=== PATIENT | male | born 1955 | race Caucasian/White ===

== ENCOUNTER 2018-11-22 18:35 | Inpatient (IN) | payer MEDICAID ==
--- NOTE | 2018-11-22 19:15 | ED Physician Chart ---
ED Chief Complaint/HPI - Patient Information Date Seen:: 11/22/18 Time Seen:: 19:00 Chief Complaint:: chest pain and abdominal pain History of Present Illness:: Patient complaint of chest pain abdominal pain today. He vomited twice. He states he has not eaten anything all day today. Allergies:: Allergies Allergy/AdvReac Type Severity Reaction Status Date / Time No Known Allergies Allergy Verified 11/22/18 18:55 Vitals:: Vital Signs - 8 hr 11/22/18 19:00 Temp 98.2 F HR 85 RR 16 BP 127/80 O2 Sat % 97 Historian:: EMS Review:: Transfer documents Reviewed ED Review of Systems - Review of Systems General/Constitutional: No fever Skin: No skin lesions Head: No headache Eyes: No loss of vision ENT: No earache Neck: No neck pain Cardio Vascular: Chest pain GI: Nausea, Vomiting, Pain G/U: No dysuria Musculoskeletal: No bone or joint pain Endocrine: No polyuria Hematopoietic: No bruising Allergic/Immuno: No urticaria ED Past Medical History - Past Medical History Past Medical History: HTN, Asthma/COPD, Arthritis Family History: Other (not available) Social History: Care Facility Surgical History: other (colostomy) Psychiatricy History: Other (anxiety) Medication: Reviewed Family Medical History - Family Member Father History Unknown: Yes ED Physical Exam - Physical Examination General/Constitutional: Awake, Well-developed, well-nourished, Alert, No distress Other Gen/Cons comments:: Patient is confused; does not know the year Head: Atraumatic Eyes: Lids, conjuctiva normal, PERRL Skin: Nl inspection, No rash, No skin lesions, No ecchymosis, Well hydrated ENMT: External ears, nose nl Other ENMT comments:: edentulous Neck: No nuchal rigidity Respiratory: Nl effort/Exclusion Other Respiratory comments:: 1.5 out of 4 diffuse wheezing Cardio Vascular: RRR, No murmur, gallop, rubs, NL S1 S2 GI: No organomegaly, Nondistended, No mass/bruits Other GI comments:: Diffuse tenderness without guarding Extremities: No edema Neuro/Psych: No focal deficits ED Labs/Radiology/EKG Results - Lab Results Results: Abnormal Lab Results 11/22/18 11/22/18 11/22/18 19:18 19:18 19:18 WBC 6.1 RBC 4.73 Hgb 13.7 Hct 41.2 MCV 87.0 MCH 28.9 MCHC Differential 33.2 RDW 13.4 Plt Count 259 MPV 8.6 Neutrophils % 54.1 Lymphocytes % 34.5 Monocytes % 9.4 Eosinophils % 1.5 Basophils % 0.5 Sodium 142 Potassium 4.1 Chloride 101 Carbon Dioxide 34.2 H Anion Gap 10.9 BUN 9 Creatinine 0.7 Est GFR ( Amer) > 60.0 Est GFR (Non-Af Amer) > 60.0 BUN/Creatinine Ratio 12.9 Glucose 107 H Calcium 9.9 Magnesium 2.1 Troponin I < 0.01 L Lipase 24 - Radiology Results Results: Chest x-ray showed calcification of aortic arch; otherwise normal - EKG Interpretations Rate & Rhythm: EKG showed a normal sinus rhythm with a rate of 83 [place]: normal ED Assessment - Assessment General Assessment: Patient complained of chest pain and abdominal pain and appears to have dementia so is a poor historian. I spoke to Dr. Finley and patient be admitted. The workup was negative on the patient. ED Septic Shock - . Is Septic Shock (SBP<90, OR Lactate>4 mmol\L) present?: No - <6hrs of presentation: Vital Signs: Vital Signs - 8 hr 11/22/18 19:00 Temp 98.2 F HR 85 RR 16 BP 127/80 O2 Sat % 97 ED Reassessment (Disposition) - Reassessment Reassessment Condition:: Unchanged - Diagnosis Diagnosis:: Chest pain; abdominal pain; vomiting; status post colostomy - Patient Disposition Admitted to:: Telemetry Spoke to:: Estuardo Finley Admitting Medical Physician:: Estuardo Finley Condition at Disposition:: Stable, Unchanged
[2018-11-22 19:23] LABS: % BASOPHILS 0.5 % (0.0-2.0); % EOSINOPHILS 1.5 % (0.0-5.0); % LYMPHOCYTES 34.5 % (20.0-50.0); % MONOCYTES 9.4 % (2.0-10.0); % NEUTROPHILS 54.1 % (40.0-80.0); EOSINOPHILE ABSOLUTE 0.1 Th/cmm (0.1-0.4); HEMATOCRIT 41.2 % (41.0-60); HEMOGLOBIN 13.7 gm/dL (12-16); LYMPHOCYTE ABSOLUTE 2.1 Th/cmm (1.5-3.0); MEAN CORPUSCULAR HEMOGLOBIN 28.9 pg (26.0-30.0); MEAN CORPUSCULAR HGB CONC 33.2 pg (28.0-36.0); MEAN PLATELET VOLUME 8.6 fl; MONOCYTE ABSOLUTE 0.6 Th/cmm (0.3-1.0); NEUTROPHILE ABSOLUTE 3.3 Th/cmm (1.8-8.0); PLATELET COUNT 259 Th/cmm (150-400); RED BLOOD COUNT 4.73 Mil/cmm (4.30-5.70); RED CELL DISTRIBUTION WIDTH 13.4 % (11.5-20.0); WHITE BLOOD COUNT 6.1 Th/cmm (4.8-10.8)
[2018-11-22 19:38] LABS: ANION GAP 10.9 (7.0-16.0); BUN - UREA NITROGEN 9 mg/dL (7-25); CALCIUM SERUM 9.9 mg/dL (8.6-10.3); CARBON DIOXIDE 34.2 mEq/L (21.0-31.0); CHLORIDE 101 mEq/L (98-107); CREATININE - SERUM 0.7 mg/dL (0.7-1.3); GFR AFRICAN-AMERICAN > 60.0 ml/min (>90); GFR NON AFRICAN-AMERICAN > 60.0 ml/min; GLUCOSE 107 mg/dL (70-105); LIPASE 24 U/L (11-82); MAGNESIUM 2.1 mg/dL (1.9-2.7); POTASSIUM SERUM 4.1 mEq/L (3.5-5.1); SODIUM SERUM 142 mEq/L (136-145)
[2018-11-22] MEDS ORDERED: Non-Formulary Item 1 EA (Acetaminophen [Pain Reliever] 650 MG) PO PRN (20:42)
[2018-11-22] MEDS ORDERED: Maalox 30 mL Cup PO PRN (20:43)
[2018-11-22] MEDS ORDERED: Morphine Sulfate 2 mg/mL 1mL Syr IVP PRN (20:43)
[2018-11-22] MEDS ORDERED: Hydrocodone/APAP 5mg/325mg Tab PO PRN (20:43)
--- NOTE | 2018-11-22 21:22 | History & Physical ---
ADMIT DATE: 11/22/2018 CHIEF COMPLAINT: Chest pain, abdominal pain, and vomiting. HISTORY OF PRESENT ILLNESS: This is a 63-year-old male with history of hypertension, asthma, COPD, arthritis, dementia, status post colostomy for unclear reasons. The patient is not a best historian. The patient stated that he has been having chest pain, abdominal pain all day long. The patient has been evaluated in the ER and admitted for further management. PAST MEDICAL HISTORY: As mentioned in history of present illness. PAST SURGICAL HISTORY: Status post colostomy. ALLERGIES: No known drug allergies. MEDICATIONS: The patient is on multivitamin, Dulcolax, albuterol and Tylenol. FAMILY HISTORY: Noncontributory. SOCIAL HISTORY: The patient is a prison patient, requiring 24-hour total care. REVIEW OF SYSTEMS: This is limited secondary to the patient's current mental state. We will try to obtain more detailed review of system at a later date done by members. There is no known listed on sheet besides the patient. We will try to get more information from nursing staff at the facility at [facility] on [phone] as well as from Dr. Sabillon who normally follows the patient in the facility. PHYSICAL EXAMINATION: VITAL SIGNS: Blood pressure 124/83, respirations 18, pulse 70, and temperature 98.1. GENERAL: Elderly male, appears stated age, thin built. NECK: Supple. LUNGS: Equal breath sounds, few rhonchi. HEART: Regular rate and rhythm without appreciable murmurs. ABDOMEN: Soft, globular. Positive colostomy. EXTREMITIES: Positive excoriation. NEUROLOGIC: Limited. LABORATORY DATA: WBC 6, hemoglobin 13, platelets 229. Sodium 140, potassium 4.1, bicarbonate 34, BUN 29, creatinine 0.7, blood sugar 107. Troponin negative x 1. CTA of the abdomen and pelvis was done, but the results pending plus chest x-ray. ASSESSMENT AND PLAN: Chest pain, atypical abdominal pain, episode of vomiting, hypertension, asthma/chronic obstructive pulmonary disease, osteoarthritis, dementia. We will rule the patient out for myocardial infarction. We will refer the patient to Cardiology. We will review the patient's CT abdomen and pelvis. We will place the patient on nitroglycerin as well as aspirin. Continue on IV hydration. We will perform 2D echo. Continue with current care, followup consult and recommendations. We will decide on a GI workup as we continue following on the patient. JOB# [id number]
[2018-11-22] MEDS: D5-0.45NS 1,000 ML IV SCH (22:26)
[2018-11-22] MEDS: Albuterol Nebulizer 2.5mg/3mL HHN PRN (22:35)
[2018-11-23] MEDS: Albuterol Nebulizer 2.5mg/3mL HHN PRN ×2 (03:28→21:04)
[2018-11-23 06:21] LABS: % BASOPHILS 0.9 % (0.0-2.0); % LYMPHOCYTES 32.4 % (20.0-50.0); % MONOCYTES 11.2 % (2.0-10.0); % NEUTROPHILS 52.5 % (40.0-80.0); EOSINOPHILE ABSOLUTE 0.1 Th/cmm (0.1-0.4); HEMATOCRIT 39.3 % (41.0-60); HEMOGLOBIN 12.7 gm/dL (12-16); LYMPHOCYTE ABSOLUTE 1.6 Th/cmm (1.5-3.0); MEAN CELL VOLUME 88.2 fl (80-99); MEAN CORPUSCULAR HEMOGLOBIN 28.6 pg (26.0-30.0); MEAN CORPUSCULAR HGB CONC 32.4 pg (28.0-36.0); MEAN PLATELET VOLUME 8.6 fl; MONOCYTE ABSOLUTE 0.5 Th/cmm (0.3-1.0); NEUTROPHILE ABSOLUTE 2.7 Th/cmm (1.8-8.0); PLATELET COUNT 219 Th/cmm (150-400); RED BLOOD COUNT 4.45 Mil/cmm (4.30-5.70); RED CELL DISTRIBUTION WIDTH 13.1 % (11.5-20.0); WHITE BLOOD COUNT 4.9 Th/cmm (4.8-10.8)
[2018-11-23 06:39] LABS: ALB/GLOB RATIO 1.3 (1.0-1.8); ALBUMIN 3.4 gm/dL (4.2-5.5); ALKALINE PHOSPHATASE 68 U/L (34-104); ANION GAP 8.7 (7.0-16.0); BILIRUBIN,TOTAL 0.8 mg/dL (0.3-1.0); BUN - UREA NITROGEN 9 mg/dL (7-25); CALCIUM SERUM 9.2 mg/dL (8.6-10.3); CHLORIDE 102 mEq/L (98-107); CREATININE - SERUM 0.8 mg/dL (0.7-1.3); GFR AFRICAN-AMERICAN > 60.0 ml/min (>90); GFR NON AFRICAN-AMERICAN > 60.0 ml/min; GLUCOSE 117 mg/dL (70-105); POTASSIUM SERUM 3.7 mEq/L (3.5-5.1); SGOT 19 U/L (13-39); SGPT/ALT 13 U/L (7-52); SODIUM SERUM 141 mEq/L (136-145)
[2018-11-23] MEDS: Albuterol Nebulizer 2.5mg/3mL HHN SCH ×4 (06:51→19:25)
[2018-11-23] MEDS: Ipratropium Neb 0.5 mg/2.5 mL UD HHN SCH ×4 (06:51→19:25)
--- NOTE | 2018-11-23 08:26 | Diagnostic Imaging Report ---
CT abdomen and pelvis without intravenous contrast Indication: Abdominal pain Comparison: None, Technique: Axial images were obtained from the lung bases to the bilateral proximal femurs without IV contrast. Coronal reconstructions were made. total DLP: 338, CTDI7.8 FINDINGS: Hypoventilatory atelectatic changes of the lung bases are noted. Assessment of the solid organs is limited due to lack of IV contrast. No evidence of focal hepatic or splenic lesions. Exam is also limited due to motion. No focal pancreatic or adrenal lesions. No evidence of hydronephrosis or nephrolithiasis. A left lower quadrant loop ostomy is noted. No evidence of bowel obstruction. Moderate stool is noted. There is minimal bowel wall thickening of the sigmoid colon proximal to the ostomy. No free air or free fluid. Mildly prominent prostate gland is noted. Bilateral fat-containing inguinal hernias are noted with additional focal herniation lateral to the fat-containing left inguinal partially containing a loop of the sigmoid colon distal to the ostomy. The osseous structures demonstrate no acute abnormalities. IMPRESSION: Left lower quadrant loop ostomy noted. There is mild bowel wall thickening proximal to the loop ostomy in the region of the proximal sigmoid colon. Inflammatory process cannot be excluded. Small bilateral fat-containing inguinal hernias are noted. There is also herniation of fat and partial herniation of the sigmoid colon just superior and lateral to the fat-containing left inguinal hernia. This is located inferior and separate from the loops ostomy site. This is also medial and appears separate from the left femoral vessels. Please correlate clinically. Mildly prominent prostate gland correlate clinically.
--- NOTE | 2018-11-23 08:43 | Diagnostic Imaging Report ---
Portable chest x-ray History: Pain Allowing for portable technique the heart size is normal. No focal pulmonary parenchymal processes. No hilar or mediastinal abnormalities. Impression: No acute abnormalities.
[2018-11-23] MEDS: Multivitamin w/ Minerals Tab PO SCH (09:58)
[2018-11-23] MEDS: D5-0.45NS 1,000 ML IV SCH ×2 (09:58→23:00)
[2018-11-23] MEDS: Pantoprazole 40 mg EC Tab PO SCH ×2 (09:58→17:06)
--- NOTE | 2018-11-23 13:18 | Internal Medicine Prog Note ---
Internal Medicine Subjective - Subjective Patient seen and examined:: with staff, chart reviewed Patient is:: awake, verbal, interactive, in bed Patient Complaints of:: vomitting Per staff patient has:: no adverse event, no episodes of fall, poor appetite, tolerating meds Internal Medicine Objective - Results Result Diagrams: 11/23/18 06:00 11/23/18 06:00 Recent Labs: Laboratory Last Values WBC 4.9 Th/cmm (4.8-10.8) 11/23/18 06:00 RBC 4.45 Mil/cmm (4.30-5.70) 11/23/18 06:00 Hgb 12.7 gm/dL (12-16) 11/23/18 06:00 Hct 39.3 % (41.0-60) L 11/23/18 06:00 MCV 88.2 fl (80-99) 11/23/18 06:00 MCH 28.6 pg (26.0-30.0) 11/23/18 06:00 MCHC Differential 32.4 pg (28.0-36.0) 11/23/18 06:00 RDW 13.1 % (11.5-20.0) 11/23/18 06:00 Plt Count 219 Th/cmm (150-400) 11/23/18 06:00 MPV 8.6 fl 11/23/18 06:00 Neutrophils % 52.5 % (40.0-80.0) 11/23/18 06:00 Lymphocytes % 32.4 % (20.0-50.0) 11/23/18 06:00 Monocytes % 11.2 % (2.0-10.0) H 11/23/18 06:00 Eosinophils % 3.0 % (0.0-5.0) 11/23/18 06:00 Basophils % 0.9 % (0.0-2.0) 11/23/18 06:00 Sodium 141 mEq/L (136-145) 11/23/18 06:00 Potassium 3.7 mEq/L (3.5-5.1) 11/23/18 06:00 Chloride 102 mEq/L (98-107) 11/23/18 06:00 Carbon Dioxide 34.0 mEq/L (21.0-31.0) H 11/23/18 06:00 Anion Gap 8.7 (7.0-16.0) 11/23/18 06:00 BUN 9 mg/dL (7-25) 11/23/18 06:00 Creatinine 0.8 mg/dL (0.7-1.3) 11/23/18 06:00 Est GFR ( Amer) > 60.0 ml/min (>90) 11/23/18 06:00 Est GFR (Non-Af Amer) > 60.0 ml/min 11/23/18 06:00 BUN/Creatinine Ratio 11.3 11/23/18 06:00 Glucose 117 mg/dL (70-105) H 11/23/18 06:00 Calcium 9.2 mg/dL (8.6-10.3) 11/23/18 06:00 Magnesium 2.1 mg/dL (1.9-2.7) 11/22/18 19:18 Total Bilirubin 0.8 mg/dL (0.3-1.0) 11/23/18 06:00 AST 19 U/L (13-39) 11/23/18 06:00 ALT 13 U/L (7-52) 11/23/18 06:00 Alkaline Phosphatase 68 U/L (34-104) 11/23/18 06:00 Ammonia 60 umol/L (16-53) H 11/23/18 06:00 Troponin I < 0.01 ng/mL (0.01-0.05) L 11/23/18 06:00 B-Natriuretic Peptide < 5.0 pg/mL (5.0-100.0) L 11/23/18 06:00 Total Protein 6.0 gm/dL (6.0-8.3) 11/23/18 06:00 Albumin 3.4 gm/dL (4.2-5.5) L 11/23/18 06:00 Globulin 2.6 gm/dL 11/23/18 06:00 Albumin/Globulin Ratio 1.3 (1.0-1.8) 11/23/18 06:00 Lipase 24 U/L (11-82) 11/22/18 19:18 TSH 1.04 uIU/ml (0.34-5.60) 11/23/18 06:00 - Physical Exam Vitals and I&O: Vital Signs Temp 97.1 F 11/23/18 12:14 Pulse 70 11/23/18 12:14 Resp 17 11/23/18 12:14 BP 130/71 11/23/18 12:14 Pulse Ox 98 11/23/18 12:14 Intake & Output 11/22/18 11/23/18 11/23/18 18:59 06:59 18:59 Intake Total 100 922.667 Balance 100 922.667 Weight (lbs) 51.891 kg Intake: Intake, IV Amount 922.667 D5-0.45NS 1,000 ml @ 80 922.667 mls/hr IV .[id number] [facility] Rx #:[id number] Oral 100 Other: # Voids 2 # Bowel Movements 0 Weight Source Bedscale Active Medications: Current Medications Acetaminophen (Tylenol) 650 mg PO Q4H PRN PRN Reason: Pain Or Fever above 101 Stop: 01/21/19 20:42 Acetaminophen/Hydrocodone Bitart ([place] 5mg/325mg) 1 tab PO Q4H PRN PRN Reason: Pain (Severe) Stop: 01/21/19 20:42 Al Hydrox/Mg Hydrox/Simethicone (Maalox) 30 ml PO Q6H PRN PRN Reason: Dyspepsia Stop: 01/21/19 20:42 Albuterol Sulfate (Albuterol 2.5mg/3ml Neb Ud) 2.5 mg HHN Q4HRT PRN PRN Reason: shortness Stop: 01/21/19 20:41 Last Admin: 11/23/18 03:28 Dose: 2.5 mg Albuterol Sulfate (Albuterol 2.5mg/3ml Neb Ud) 2.5 mg HHN QIDRT [facility] Stop: 01/22/19 06:59 Last Admin: 11/23/18 10:36 Dose: 2.5 mg Aspirin (Ecotrin) 81 mg PO DAILY [facility] Stop: 01/22/19 08:59 Last Admin: 11/23/18 09:58 Dose: 81 mg Bisacodyl (Dulcolax 5 Mg Ec Tab) 5 mg PO DAILY PRN PRN Reason: Constipation Stop: 01/21/19 20:41 Heparin Sodium (Porcine) (Heparin) 5,000 units SUBQ Q12HR [facility] Stop: 01/21/19 20:59 Last Admin: 11/23/18 09:57 Dose: 5,000 units Dextrose/Sodium Chloride (D5-0.45ns) 1,000 mls @ 80 mls/hr IV .[id number] [facility] Stop: 01/21/19 20:44 Last Admin: 11/23/18 09:58 Dose: 80 mls/hr Ipratropium [place] (Atrovent Neb 0.5mg/2.5ml) 0.5 mg HHN QIDRT [facility] Stop: 01/22/19 06:59 Last Admin: 11/23/18 10:36 Dose: 0.5 mg Lactulose (Cephulac) 30 gm PO DAILY [facility] Stop: 01/22/19 13:14 Morphine Sulfate (Morphine) 2 mg IVP Q4H PRN PRN Reason: Chest Pain Stop: 01/21/19 20:42 Nitroglycerin (Nitrostat) 0.4 mg SL Q5MIN PRN PRN Reason: Chest Pain Stop: 01/21/19 20:42 Ondansetron HCl (Zofran) 4 mg IV Q8H PRN PRN Reason: Nausea / Vomiting Stop: 01/21/19 20:42 Last Admin: 11/23/18 09:57 Dose: 4 mg Pantoprazole Sodium (Protonix) 40 mg PO BID [facility] Stop: 01/22/19 08:59 Last Admin: 11/23/18 09:58 Dose: 40 mg Zolpidem Tartrate (Ambien) 10 mg PO HS PRN PRN Reason: Insomnia Stop: 01/21/19 20:42 General: alert, thin HEENT: NC/AT, PERRLA Neck: Supple, No JVD Lungs: CTAB Cardiovascular: RRR, Normal S1, Normal S2, without murmur Abdomen: soft, globular, positive bowel sound, other (ostomy) Extremities: excoriation Neurological: no change, disorganized Internal Medicine Assmt/Plan - Assessment Assessment: ASSESSMENT AND PLAN: Chest pain, atypical abdominal pain, episode of vomiting, hypertension, asthma/chronic obstructive pulmonary disease, osteoarthritis, dementia. - Plan Plan: We will rule the patient out for myocardial infarction. We will refer the patient to Cardiology. We will review the patient's CT abdomen and pelvis. We will place the patient on nitroglycerin as well as aspirin. Continue on IV hydration. We will perform 2D echo. Continue with current care, followup consult and recommendations. We will decide on a GI workup as we continue following on the patient. add lactulose
[2018-11-23] MEDS ORDERED: VTE Chemical Prophylaxis Screen/Admission MC PRN (14:29)
[2018-11-23] MEDS: Lactulose 10 Gm/15 mL 30mL UDC PO SCH (15:07)
--- NOTE | 2018-11-23 15:30 | Cardiology ---
11/23/[address] Finley. PROCEDURE: Echocardiogram. M-MODE ECHOCARDIOGRAM: Mitral valve, anterior leaflet of mitral valve shows normal excursion, EF velocity. Posterior leaflet of the mitral valve shows normal excursion. Left ventricular posterior wall showed normal thickness, excursion. Interventricular septum showed normal thickness, excursion. Ejection fraction 72%. Left atrium normal. Aortic root shows normal dimension, normal excursion of aortic leaflets. CONCLUSION: Hypertrophy of the left ventricle, ejection fraction 72%. 2D ECHO: Long axis view showed normal sized left ventricle with hypertrophy of the left ventricle. Left atrium normal. Aortic root shows normal dimension, normal excursion of aortic leaflets. Short axis view of mitral valve normal. Short axis view of aortic valve normal. Apical four chamber view showed normal sized left ventricle with hypertrophy of the left ventricle. Left atrium normal. Right ventricular cavity, right atrium normal, no pericardial effusion. CONCLUSION: Hypertrophy of the left ventricle, ejection fraction 72%. Doppler study showed trace mitral regurgitation, mild tricuspid regurgitation, right ventricular systolic pressure 33 mmHg. JOB# [id number]
--- NOTE | 2018-11-23 16:02 | Consultation ---
DATE OF CONSULTATION: 11/23/[address] Finley. HISTORY OF PRESENT ILLNESS: This is a 63-year-old male patient with mild dementia, has been complaining of chest pain. Following this, the patient was brought to the Emergency Room and the patient is admitted. The patient also complaining of abdominal pain and nausea. No vomiting. PAST MEDICAL HISTORY: BPH, hypertension, pneumonia, COPD, lumbosacral radiculopathy, osteoarthritis of the left shoulder, colostomy, anxiety. FAMILY HISTORY: Unremarkable. SOCIAL HISTORY: No history of smoking, alcohol abuse. ALLERGIES: None. PHYSICAL EXAMINATION: VITAL SIGNS: Blood pressure 130/80, pulse 70, respirations 20. HEAD: Normocephalic. No lumps or bumps. EYES: Pupils equal, reactive to light. Fundi showing AV nicking, sclerae white, conjunctivae pink. NECK: Carotid 2+. Normal upstroke. JVD flat. Thyroid not palpable. Lymph nodes not palpable. CHEST: Shows increased AP diameter. No kyphosis, scoliosis. LUNGS: Bilateral bronchovesicular breath sounds. HEART: PMI fifth intercostal space with lateral to midclavicular line. S1, S2. No S3, S4, soft systolic murmur. ABDOMEN: Soft. Liver, spleen not palpable. No organomegaly. Bowel sounds active. NEUROLOGIC: Unremarkable. EXTREMITIES: Peripheral pulses 2+. No pedal edema. LABORATORY DATA: The patient has ammonia level of 60. Troponin levels are normal. EKG normal. CLINICAL IMPRESSION 1. Acute exacerbation of chronic obstructive pulmonary disease. 2. Atypical chest pain. 3. Hepatic encephalopathy. 4. Hypertension. 5. Benign prostatic hypertrophy. 6. Lumbosacral radiculopathy. 7. Osteoarthritis of the left shoulder. 8. Colostomy. 9. Anxiety. PLAN: We will give the patient lactulose. Troponin level, EKG unremarkable. Echocardiogram shows ejection fraction 72%, hypertrophy of the left ventricle with trace mitral regurgitation, mild tricuspid regurgitation. The patient's cardiac status stable. The patient to continue on lactulose. JOB# [id number]
[2018-11-24] MEDS: Ipratropium Neb 0.5 mg/2.5 mL UD HHN SCH ×4 (07:19→18:26)
[2018-11-24] MEDS: Albuterol Nebulizer 2.5mg/3mL HHN SCH ×4 (07:19→18:26)
--- NOTE | 2018-11-24 09:42 | Diagnostic Imaging Report ---
KUB single view HISTORY: Abdominal pain. COMPARISON: CT abdomen and pelvis on 11/22/2018 FINDINGS: Left lower quadrant ostomy is noted. The bowel gas pattern is nonspecific. There is elevation of right hemidiaphragm. No gross free air. IMPRESSION: Nonspecific bowel gas pattern. Left lower quadrant ostomy.
[2018-11-24] MEDS: Lactulose 10 Gm/15 mL 30mL UDC PO SCH (09:55)
[2018-11-24] MEDS: Multivitamin w/ Minerals Tab PO SCH (09:55)
[2018-11-24] MEDS: Pantoprazole 40 mg EC Tab PO SCH ×2 (09:55→18:05)
[2018-11-24 11:08] LABS: FOLIC ACID >20.0 ng/mL (>3.0)
[2018-11-24] MEDS ORDERED: Guaifenesin DM 10 ML UDC PO PRN (14:24)
--- NOTE | 2018-11-24 14:26 | Internal Medicine Prog Note ---
Internal Medicine Subjective - Subjective Service Date: 11/24/18 (noted with bilateral wheezes) Patient is:: awake, verbal, interactive, in bed Patient Complaints of:: other (dry cough) Per staff patient has:: no adverse event, no episodes of fall, poor appetite, tolerating meds Internal Medicine Objective - Results Result Diagrams: 11/23/18 06:00 11/23/18 06:00 Recent Labs: Laboratory Last Values WBC 4.9 Th/cmm (4.8-10.8) 11/23/18 06:00 RBC 4.45 Mil/cmm (4.30-5.70) 11/23/18 06:00 Hgb 12.7 gm/dL (12-16) 11/23/18 06:00 Hct 39.3 % (41.0-60) L 11/23/18 06:00 MCV 88.2 fl (80-99) 11/23/18 06:00 MCH 28.6 pg (26.0-30.0) 11/23/18 06:00 MCHC Differential 32.4 pg (28.0-36.0) 11/23/18 06:00 RDW 13.1 % (11.5-20.0) 11/23/18 06:00 Plt Count 219 Th/cmm (150-400) 11/23/18 06:00 MPV 8.6 fl 11/23/18 06:00 Neutrophils % 52.5 % (40.0-80.0) 11/23/18 06:00 Lymphocytes % 32.4 % (20.0-50.0) 11/23/18 06:00 Monocytes % 11.2 % (2.0-10.0) H 11/23/18 06:00 Eosinophils % 3.0 % (0.0-5.0) 11/23/18 06:00 Basophils % 0.9 % (0.0-2.0) 11/23/18 06:00 Sodium 141 mEq/L (136-145) 11/23/18 06:00 Potassium 3.7 mEq/L (3.5-5.1) 11/23/18 06:00 Chloride 102 mEq/L (98-107) 11/23/18 06:00 Carbon Dioxide 34.0 mEq/L (21.0-31.0) H 11/23/18 06:00 Anion Gap 8.7 (7.0-16.0) 11/23/18 06:00 BUN 9 mg/dL (7-25) 11/23/18 06:00 Creatinine 0.8 mg/dL (0.7-1.3) 11/23/18 06:00 Est GFR ( Amer) > 60.0 ml/min (>90) 11/23/18 06:00 Est GFR (Non-Af Amer) > 60.0 ml/min 11/23/18 06:00 BUN/Creatinine Ratio 11.3 11/23/18 06:00 Glucose 117 mg/dL (70-105) H 11/23/18 06:00 Calcium 9.2 mg/dL (8.6-10.3) 11/23/18 06:00 Magnesium 2.1 mg/dL (1.9-2.7) 11/22/18 19:18 Total Bilirubin 0.8 mg/dL (0.3-1.0) 11/23/18 06:00 AST 19 U/L (13-39) 11/23/18 06:00 ALT 13 U/L (7-52) 11/23/18 06:00 Alkaline Phosphatase 68 U/L (34-104) 11/23/18 06:00 Ammonia 104 umol/L (16-53) H 11/23/18 06:00 Troponin I < 0.01 ng/mL (0.01-0.05) L 11/23/18 06:00 B-Natriuretic Peptide < 5.0 pg/mL (5.0-100.0) L 11/23/18 06:00 Total Protein 6.0 gm/dL (6.0-8.3) 11/23/18 06:00 Albumin 3.4 gm/dL (4.2-5.5) L 11/23/18 06:00 Globulin 2.6 gm/dL 11/23/18 06:00 Albumin/Globulin Ratio 1.3 (1.0-1.8) 11/23/18 06:00 Lipase 24 U/L (11-82) 11/22/18 19:18 Vitamin B12 150 pg/mL (232-1245) L 11/23/18 06:00 Folic Acid >20.0 ng/mL (>3.0) 01/04/19 06:00 TSH 1.04 uIU/ml (0.34-5.60) 11/23/18 06:00 - Physical Exam Vitals and I&O: Vital Signs Temp 97 F 11/24/18 11:40 Pulse 100 11/24/18 14:07 Resp 18 11/24/18 14:07 BP 137/95 11/24/18 11:40 Pulse Ox 98 11/24/18 14:07 Intake & Output 11/23/18 11/24/18 11/24/18 18:59 06:59 18:59 Intake Total 4762.373 6482.000 Output Total 1030 180 Balance 679.090 6613.000 Weight (lbs) 114 lb 6.4 oz 114 lb 6.4 oz Intake: Intake, IV Amount 705.348 8002.000 D5-0.45NS 1,000 ml @ 80 186.748 7559.000 mls/hr IV .[id number] [facility] Rx #:[id number] Oral 550 200 Output: Urine 970 Stool 60 180 Other: # Voids 4 # Bowel Movements 1 Stool Characteristics Liquid Liquid Brown Brown Weight Source Bedscale Bedscale Active Medications: Current Medications Acetaminophen (Tylenol) 650 mg PO Q4H PRN PRN Reason: Pain Or Fever above 101 Stop: 01/21/19 20:42 Last Admin: 11/24/18 14:24 Dose: 650 mg Acetaminophen/Hydrocodone Bitart ([place] 5mg/325mg) 1 tab PO Q4H PRN PRN Reason: Pain (Severe) Stop: 01/21/19 20:42 Al Hydrox/Mg Hydrox/Simethicone (Maalox) 30 ml PO Q6H PRN PRN Reason: Dyspepsia Stop: 01/21/19 20:42 Albuterol Sulfate (Albuterol 2.5mg/3ml Neb Ud) 2.5 mg HHN Q4HRT PRN PRN Reason: shortness Stop: 01/21/19 20:41 Last Admin: 11/23/18 21:04 Dose: 2.5 mg Albuterol Sulfate (Albuterol 2.5mg/3ml Neb Ud) 2.5 mg HHN QIDRT [facility] Stop: 01/22/19 06:59 Last Admin: 11/24/18 14:06 Dose: 2.5 mg Aspirin (Ecotrin) 81 mg PO DAILY [facility] Stop: 01/22/19 08:59 Last Admin: 11/24/18 09:55 Dose: 81 mg Bisacodyl (Dulcolax 5 Mg Ec Tab) 5 mg PO DAILY PRN PRN Reason: Constipation Stop: 01/21/19 20:41 Guaifenesin/Dextromethorphan (Robitussin Dm) 10 ml PO Q4HR PRN PRN Reason: Cough Stop: 01/23/19 14:23 Heparin Sodium (Porcine) (Heparin) 5,000 units SUBQ Q12HR [facility] Stop: 01/21/19 20:59 Last Admin: 11/24/18 09:58 Dose: 5,000 units Dextrose/Sodium Chloride (D5-0.45ns) 1,000 mls @ 80 mls/hr IV .[id number] [facility] Stop: 01/21/19 20:44 Last Admin: 11/23/18 23:00 Dose: 80 mls/hr Ipratropium [place] (Atrovent Neb 0.5mg/2.5ml) 0.5 mg HHN QIDRT [facility] Stop: 01/22/19 06:59 Last Admin: 11/24/18 14:06 Dose: 0.5 mg Lactulose (Cephulac) 30 gm PO DAILY [facility] Stop: 01/22/19 13:14 Last Admin: 11/24/18 09:55 Dose: 30 gm Methylprednisolone Sodium Succinate (Solu-Medrol) 60 mg IVP Q8HR [facility] Stop: 01/23/19 20:59 Miscellaneous ([employer] Prophylaxis Screen/ Admission) 1 ea [facility] PRN PRN PRN Reason: PROTOCOL Stop: 01/22/19 14:28 Morphine Sulfate (Morphine) 2 mg IVP Q4H PRN PRN Reason: Chest Pain Stop: 01/21/19 20:42 Nitroglycerin (Nitrostat) 0.4 mg SL Q5MIN PRN PRN Reason: Chest Pain Stop: 01/21/19 20:42 Ondansetron HCl (Zofran) 4 mg IV Q8H PRN PRN Reason: Nausea / Vomiting Stop: 01/21/19 20:42 Last Admin: 11/24/18 12:38 Dose: 4 mg Pantoprazole Sodium (Protonix) 40 mg PO BID [facility] Stop: 01/22/19 08:59 Last Admin: 11/24/18 09:55 Dose: 40 mg Zolpidem Tartrate (Ambien) 10 mg PO HS PRN PRN Reason: Insomnia Stop: 01/21/19 20:42 Last Admin: 11/23/18 20:21 Dose: 10 mg General: alert, thin HEENT: NC/AT, PERRLA Neck: Supple, No JVD Lungs: wheezing Cardiovascular: RRR, Normal S1, Normal S2, without murmur Abdomen: soft, globular, positive bowel sound, other (ostomy) Extremities: excoriation Neurological: no change, disorganized Internal Medicine Assmt/Plan - Assessment Assessment: Chest pain, atypical abdominal pain, hypertension, asthma/chronic obstructive pulmonary disease, osteoarthritis, dementia. - Plan Plan: will add solumedrol respiratory tx to continue cxr in am follow up labs in am cont current plan of care
[2018-11-24] MEDS: D5-0.45NS 1,000 ML IV SCH (20:20)
[2018-11-24] MEDS: methylPREDNISolone SS 40 mg Vial IVP SCH (20:21)
[2018-11-24] MEDS: Ipratropium Neb 0.5 mg/2.5 mL UD HHN PRN (22:04)
[2018-11-25] MEDS: Ipratropium Neb 0.5 mg/2.5 mL UD HHN PRN (01:30)
[2018-11-25 02:01] LABS: URINE SOURCE RANDOM
[2018-11-25 02:05] LABS: URINE BILIRUBIN NEGATIVE (NEGATIVE); URINE BLOOD NEGATIVE (NEGATIVE); URINE GLUCOSE (UA) NEGATIVE (NEGATIVE); URINE KETONE 15 mg/dL (NEGATIVE); URINE LEUKOCYTE ESTERASE NEGATIVE (NEGATIVE); URINE NITRATE NEGATIVE (NEGATIVE); URINE PROTEIN NEGATIVE (NEGATIVE); URINE UROBILINOGEN 0.2 E.U./dL (0.2 - 1.0)
[2018-11-25 02:14] LABS: URINE CLARITY CLEAR (CLEAR); URINE COLOR YELLOW; URINE MICROSCOPIC INDICATED? YES
[2018-11-25 02:15] LABS: URINE BACTERIA FEW /hpf (NONE SEEN); URINE EPITHELIAL CELLS NONE SEEN /lpf (FEW); URINE RBC NONE SEEN /hpf (0-5); URINE WBC 0-2 /hpf (0-5)
[2018-11-25] MEDS: D5-0.45NS 1,000 ML IV SCH ×2 (04:57→22:26)
[2018-11-25] MEDS: methylPREDNISolone SS 40 mg Vial IVP SCH ×3 (04:57→20:51)
[2018-11-25 05:52] LABS: % BASOPHILS 0.3 % (0.0-2.0); % EOSINOPHILS 0.2 % (0.0-5.0); % LYMPHOCYTES 12.6 % (20.0-50.0); % MONOCYTES 1.3 % (2.0-10.0); % NEUTROPHILS 85.6 % (40.0-80.0); HEMATOCRIT 40.9 % (41.0-60); HEMOGLOBIN 13.5 gm/dL (12-16); LYMPHOCYTE ABSOLUTE 0.6 Th/cmm (1.5-3.0); MEAN CELL VOLUME 86.5 fl (80-99); MEAN CORPUSCULAR HEMOGLOBIN 28.5 pg (26.0-30.0); MEAN CORPUSCULAR HGB CONC 32.9 pg (28.0-36.0); MEAN PLATELET VOLUME 9.2 fl; MONOCYTE ABSOLUTE 0.1 Th/cmm (0.3-1.0); NEUTROPHILE ABSOLUTE 4.3 Th/cmm (1.8-8.0); PLATELET COUNT 236 Th/cmm (150-400); RED BLOOD COUNT 4.73 Mil/cmm (4.30-5.70); RED CELL DISTRIBUTION WIDTH 13.1 % (11.5-20.0)
[2018-11-25 06:10] LABS: ANION GAP 12.9 (7.0-16.0); BUN - UREA NITROGEN 7 mg/dL (7-25); CALCIUM SERUM 9.9 mg/dL (8.6-10.3); CARBON DIOXIDE 29.1 mEq/L (21.0-31.0); CHLORIDE 101 mEq/L (98-107); CREATININE - SERUM 0.7 mg/dL (0.7-1.3); GFR AFRICAN-AMERICAN > 60.0 ml/min (>90); GFR NON AFRICAN-AMERICAN > 60.0 ml/min; GLUCOSE 181 mg/dL (70-105); SODIUM SERUM 139 mEq/L (136-145)
[2018-11-25] MEDS: Ipratropium Neb 0.5 mg/2.5 mL UD HHN SCH ×4 (06:38→19:09)
[2018-11-25] MEDS: Lactulose 10 Gm/15 mL 30mL UDC PO SCH (08:33)
[2018-11-25] MEDS: Pantoprazole 40 mg EC Tab PO SCH ×2 (08:33→16:11)
[2018-11-25] MEDS: Multivitamin w/ Minerals Tab PO SCH (08:33)
--- NOTE | 2018-11-25 10:40 | Diagnostic Imaging Report ---
CHEST X-RAY: AP view INDICATION: Pneumonia COMPARISON: 11/22/2018 FINDINGS: Mild chronic changes are noted. There is no focal consolidation or pleural effusions The heart is normal in size. There is evidence of an old left clavicular fracture. IMPRESSION: No focal airspace consolidation identified.
--- NOTE | 2018-11-25 14:43 | Internal Medicine Prog Note ---
Internal Medicine Subjective - Subjective Service Date: 11/25/18 Patient seen and examined:: with staff Patient is:: awake, verbal, interactive, in bed Patient Complaints of:: other (dry cough) Per staff patient has:: no adverse event, no episodes of fall, poor appetite, tolerating meds Internal Medicine Objective - Results Result Diagrams: 11/25/18 05:22 11/25/18 05:22 Recent Labs: Laboratory Last Values WBC 5.0 Th/cmm (4.8-10.8) 11/25/18 05:22 RBC 4.73 Mil/cmm (4.30-5.70) 11/25/18 05:22 Hgb 13.5 gm/dL (12-16) 11/25/18 05:22 Hct 40.9 % (41.0-60) L 11/25/18 05:22 MCV 86.5 fl (80-99) 11/25/18 05:22 MCH 28.5 pg (26.0-30.0) 11/25/18 05:22 MCHC Differential 32.9 pg (28.0-36.0) 11/25/18 05:22 RDW 13.1 % (11.5-20.0) 11/25/18 05:22 Plt Count 236 Th/cmm (150-400) 11/25/18 05:22 MPV 9.2 fl 11/25/18 05:22 Neutrophils % 85.6 % (40.0-80.0) H 11/25/18 05:22 Lymphocytes % 12.6 % (20.0-50.0) L 11/25/18 05:22 Monocytes % 1.3 % (2.0-10.0) L 11/25/18 05:22 Eosinophils % 0.2 % (0.0-5.0) 11/25/18 05:22 Basophils % 0.3 % (0.0-2.0) 11/25/18 05:22 Sodium 139 mEq/L (136-145) 11/25/18 05:22 Potassium 4.0 mEq/L (3.5-5.1) 11/25/18 05:22 Chloride 101 mEq/L (98-107) 11/25/18 05:22 Carbon Dioxide 29.1 mEq/L (21.0-31.0) 11/25/18 05:22 Anion Gap 12.9 (7.0-16.0) 11/25/18 05:22 BUN 7 mg/dL (7-25) 11/25/18 05:22 Creatinine 0.7 mg/dL (0.7-1.3) 11/25/18 05:22 Est GFR ( Amer) > 60.0 ml/min (>90) 11/25/18 05:22 Est GFR (Non-Af Amer) > 60.0 ml/min 11/25/18 05:22 BUN/Creatinine Ratio 10.0 11/25/18 05:22 Glucose 181 mg/dL (70-105) H 11/25/18 05:22 Calcium 9.9 mg/dL (8.6-10.3) 11/25/18 05:22 Magnesium 2.1 mg/dL (1.9-2.7) 11/22/18 19:18 Total Bilirubin 0.8 mg/dL (0.3-1.0) 11/23/18 06:00 AST 19 U/L (13-39) 11/23/18 06:00 ALT 13 U/L (7-52) 11/23/18 06:00 Alkaline Phosphatase 68 U/L (34-104) 11/23/18 06:00 Ammonia 104 umol/L (16-53) H 11/23/18 06:00 Troponin I < 0.01 ng/mL (0.01-0.05) L 11/23/18 06:00 B-Natriuretic Peptide < 5.0 pg/mL (5.0-100.0) L 11/23/18 06:00 Total Protein 6.0 gm/dL (6.0-8.3) 11/23/18 06:00 Albumin 3.4 gm/dL (4.2-5.5) L 11/23/18 06:00 Globulin 2.6 gm/dL 11/23/18 06:00 Albumin/Globulin Ratio 1.3 (1.0-1.8) 11/23/18 06:00 Lipase 24 U/L (11-82) 11/22/18 19:18 Vitamin B12 150 pg/mL (232-1245) L 11/23/18 06:00 Folic Acid >20.0 ng/mL (>3.0) 11/23/18 06:00 TSH 1.04 uIU/ml (0.34-5.60) 11/23/18 06:00 Urine Source RANDOM 11/25/18 01:20 Urine Color YELLOW 11/25/18 01:20 Urine Clarity CLEAR (CLEAR) 11/25/18 01:20 Urine pH 6.0 (4.6 - 8.0) 11/25/18 01:20 Ur Specific [place] 1.015 (1.005-1.030) 11/25/18 01:20 Urine Protein NEGATIVE mg/dL (NEGATIVE) 11/25/18 01:20 Urine Glucose (UA) NEGATIVE mg/dL (NEGATIVE) 11/25/18 01:20 Urine Ketones 15 mg/dL (NEGATIVE) H 11/25/18 01:20 Urine Blood NEGATIVE (NEGATIVE) 11/25/18 01:20 Urine Nitrate NEGATIVE (NEGATIVE) 11/25/18 01:20 Urine Bilirubin NEGATIVE (NEGATIVE) 11/25/18 01:20 Urine Urobilinogen 0.2 E.U./dL (0.2 - 1.0) 11/25/18 01:20 Ur Leukocyte Esterase NEGATIVE (NEGATIVE) 11/25/18 01:20 Urine RBC NONE SEEN /hpf (0-5) 11/25/18 01:20 Urine WBC 0-2 /hpf (0-5) 11/25/18 01:20 Ur Epithelial Cells NONE SEEN /lpf (FEW) 11/25/18 01:20 Urine Bacteria FEW /hpf (NONE SEEN) 11/25/18 01:20 - Physical Exam Vitals and I&O: Vital Signs Temp 99.1 F 11/25/18 12:00 Pulse 109 11/25/18 12:00 Resp 18 11/25/18 14:10 BP 150/83 11/25/18 12:00 Pulse Ox 95 11/25/18 12:00 Intake & Output 11/24/18 11/25/18 11/25/18 18:59 06:59 18:59 Intake Total 1850 989.333 Output Total 900 Balance 1850 89.333 Weight (lbs) 114 lb 114 lb Intake: Intake, IV Amount 1000 689.333 D5-0.45NS 1,000 ml @ 80 1000 689.333 mls/hr IV .[id number] [facility] Rx #:[id number] Oral 850 300 Output: Urine 800 Emesis 100 Other: # Voids 3 2 # Bowel Movements 3 Weight Source Bedscale Bedscale Active Medications: Current Medications Acetaminophen (Tylenol) 650 mg PO Q4H PRN PRN Reason: Pain Or Fever above 101 Stop: 01/21/19 20:42 Last Admin: 11/24/18 20:46 Dose: 650 mg Acetaminophen/Hydrocodone Bitart ([place] 5mg/325mg) 1 tab PO Q4H PRN PRN Reason: Pain (Severe) Stop: 01/21/19 20:42 Al Hydrox/Mg Hydrox/Simethicone (Maalox) 30 ml PO Q6H PRN PRN Reason: Dyspepsia Stop: 01/21/19 20:42 Aspirin (Ecotrin) 81 mg PO DAILY [facility] Stop: 01/22/19 08:59 Last Admin: 11/25/18 08:33 Dose: 81 mg Bisacodyl (Dulcolax 5 Mg Ec Tab) 5 mg PO DAILY PRN PRN Reason: Constipation Stop: 01/21/19 20:41 Guaifenesin/Dextromethorphan (Robitussin Dm) 10 ml PO Q4HR PRN PRN Reason: Cough Stop: 01/23/19 14:23 Last Admin: 11/24/18 20:33 Dose: 10 ml Heparin Sodium (Porcine) (Heparin) 5,000 units SUBQ Q12HR [facility] Stop: 01/21/19 20:59 Last Admin: 11/25/18 08:33 Dose: 5,000 units Dextrose/Sodium Chloride (D5-0.45ns) 1,000 mls @ 80 mls/hr IV .[id number] [facility] Stop: 01/21/19 20:44 Last Admin: 11/25/18 04:57 Dose: 80 mls/hr Ipratropium [place] (Atrovent Neb 0.5mg/2.5ml) 0.5 mg HHN QIDRT [facility] Stop: 01/22/19 06:59 Last Admin: 11/25/18 14:10 Dose: Not Given Ipratropium [place] (Atrovent Neb 0.5mg/2.5ml) 0.5 mg HHN Q2HRT PRN PRN Reason: Shortness of Breath or Wheeze Stop: 01/23/19 21:50 Last Admin: 11/25/18 01:30 Dose: 0.5 mg Lactulose (Cephulac) 30 gm PO DAILY [facility] Stop: 01/22/19 13:14 Last Admin: 11/25/18 08:33 Dose: 30 gm Methylprednisolone Sodium Succinate (Solu-Medrol) 60 mg IVP Q8HR [facility] Stop: 01/23/19 20:59 Last Admin: 11/25/18 12:35 Dose: 60 mg Miscellaneous (Vte Chemical Prophylaxis Screen/ Admission) 1 ea [facility] PRN PRN PRN Reason: PROTOCOL Stop: 01/22/19 14:28 Morphine Sulfate (Morphine) 2 mg IVP Q4H PRN PRN Reason: Chest Pain Stop: 01/21/19 20:42 Nitroglycerin (Nitrostat) 0.4 mg SL Q5MIN PRN PRN Reason: Chest Pain Stop: 01/21/19 20:42 Ondansetron HCl (Zofran) 4 mg IV Q8H PRN PRN Reason: Nausea / Vomiting Stop: 01/21/19 20:42 Last Admin: 11/24/18 22:43 Dose: 4 mg Pantoprazole Sodium (Protonix) 40 mg PO BID [facility] Stop: 01/22/19 08:59 Last Admin: 11/25/18 08:33 Dose: 40 mg Zolpidem Tartrate (Ambien) 10 mg PO HS PRN PRN Reason: Insomnia Stop: 01/21/19 20:42 Last Admin: 11/24/18 22:32 Dose: 10 mg General: alert, thin HEENT: NC/AT, PERRLA Neck: Supple, No JVD Lungs: other (few wheezes ) Cardiovascular: RRR, Normal S1, Normal S2, without murmur Abdomen: soft, globular, positive bowel sound, other (ostomy) Extremities: excoriation Neurological: no change, disorganized Internal Medicine Assmt/Plan - Assessment Assessment: Chest pain, atypical abdominal pain, hypertension, asthma/chronic obstructive pulmonary disease, osteoarthritis, dementia. - Plan Plan: continue with solumedrol respiratory tx to continue follow up labs in am cont current plan of care
[2018-11-25] MEDS ORDERED: Ipratropium Neb 0.5 mg/2.5 mL UD HHN SCH (21:24)
[2018-11-26] MEDS: methylPREDNISolone SS 40 mg Vial IVP SCH (05:00)
[2018-11-26 05:25] LABS: % BASOPHILS 0.2 % (0.0-2.0); % EOSINOPHILS 0.1 % (0.0-5.0); % NEUTROPHILS 82.7 % (40.0-80.0); HEMATOCRIT 37.5 % (41.0-60); HEMOGLOBIN 12.4 gm/dL (12-16); LYMPHOCYTE ABSOLUTE 1.3 Th/cmm (1.5-3.0); MEAN CELL VOLUME 87.2 fl (80-99); MEAN CORPUSCULAR HEMOGLOBIN 28.9 pg (26.0-30.0); MEAN CORPUSCULAR HGB CONC 33.1 pg (28.0-36.0); MEAN PLATELET VOLUME 9.5 fl; MONOCYTE ABSOLUTE 0.6 Th/cmm (0.3-1.0); NEUTROPHILE ABSOLUTE 9.1 Th/cmm (1.8-8.0); PLATELET COUNT 244 Th/cmm (150-400)
[2018-11-26 06:00] LABS: BUN - UREA NITROGEN 12 mg/dL (7-25); CALCIUM SERUM 9.6 mg/dL (8.6-10.3); CHLORIDE 100 mEq/L (98-107); CREATININE - SERUM 0.7 mg/dL (0.7-1.3); GFR AFRICAN-AMERICAN > 60.0 ml/min (>90); GFR NON AFRICAN-AMERICAN > 60.0 ml/min; GLUCOSE 145 mg/dL (70-105); POTASSIUM SERUM 4.1 mEq/L (3.5-5.1); SODIUM SERUM 139 mEq/L (136-145)
[2018-11-26 06:15] LABS: ANION GAP 12.8 (7.0-16.0); CARBON DIOXIDE 30.3 mEq/L (21.0-31.0)
[2018-11-26] MEDS: Ipratropium Neb 0.5 mg/2.5 mL UD HHN SCH (06:59)
[2018-11-26] MEDS: Multivitamin w/ Minerals Tab PO SCH (08:13)
[2018-11-26] MEDS: Pantoprazole 40 mg EC Tab PO SCH ×2 (08:14→16:15)
[2018-11-26] MEDS: Lactulose 10 Gm/15 mL 30mL UDC PO SCH (08:14)
[2018-11-26] MEDS ORDERED: Albuterol/Ipratropium Neb 3 ML AERS HHN ONE (11:13)
[2018-11-26] MEDS: Albuterol/Ipratropium Neb 3 ML AERS HHN SCH ×2 (11:15→14:42)
--- NOTE | 2018-11-26 20:30 | Discharge Summary ---
DATE OF DISCHARGE: 11/26/2018 CHIEF COMPLAINT: Chest pain, abdominal pain, and vomiting. FINAL DIAGNOSES: Atypical chest pain, ruled out for myocardial infarction, abdominal pain, intractable vomiting, which is improved, hypertension, chronic obstructive pulmonary disease, osteoarthritis, dementia. HISTORY: This is a 63-year-old male with multiple complaints including hypertension, asthma, COPD, arthritis, dementia, has a colostomy, admitted from nursing facility secondary to chest pain, abdominal pain. The patient also is admitted for further evaluation. PHYSICAL EXAMINATION: VITAL SIGNS: Blood pressure 124/72, respirations 18, pulse 70, and temperature is ____. GENERAL: Elderly male, appears stated age. NECK: Supple. No mass. LUNGS: Equal breath sounds, few rhonchi. HEART: Regular rate and rhythm without systolic ejection murmur. ABDOMEN: Soft, globular. EXTREMITIES: Positive excoriations. HOSPITAL COURSE: The patient was admitted to telemetry. The patient was ruled out for myocardial infarction with negative troponin x 2. The patient referred to Cardiology, seen by Dr. Raji Harkins. A 2D echo was performed, which showed an ejection fraction of 72 with left ventricular hypertrophy. The patient is cleared from cardiac standpoint, the patient to be discharged on p.o. steroids and probably inhibitor therapy ____ cleared for discharge. CONDITION ON DISCHARGE: Fair. DISCHARGE ACTIVITY: Continue with current care. The patient to be referred back to the nearest ER if his conditions worsens. JOB# [id number]
== END 2018-11-26 18:40 | DRG 279 ==
LOC: ER 18:35 → TELE 21:00
PROVIDERS: ADMIT Internal Medicine; ATTEND Internal Medicine
DX: K72.90 Hepatic failure, unspecified without coma (principal); F03.90 Unspecified dementia, unspecified severity, without behavioral disturbance, psychotic disturbance, mood disturbance, and anxiety; J44.1 Chronic obstructive pulmonary disease with (acute) exacerbation; R07.89 Other chest pain; I10 Essential (primary) hypertension; R11.10 Vomiting, unspecified; R10.9 Unspecified abdominal pain; M54.17 Radiculopathy, lumbosacral region; M19.012 Primary osteoarthritis, left shoulder; F41.9 Anxiety disorder, unspecified; N40.0 Benign prostatic hyperplasia without lower urinary tract symptoms; Z93.3 Colostomy status; Z87.01 Personal history of pneumonia (recurrent)
CPT/HCPCS: 36415-UA; 71045-TC; 74000-TC; 80048-TC; 80053-TC; 81001-TC; 82140-TC; 82607-90; 82746-90; 83036-90; 83690-TC; 83735-TC; 83880-TC; 84443-TC; 84484-TC; 85025-TC; 90779; 93005; 94640; 94760; 96374; 96375; J1644; J2405; J2920; J2930; J7613; Z7610